=== PATIENT | female | born 1950 | race Caucasian/White ===

== ENCOUNTER 2017-01-20 07:14 | Emergency (ER) | payer MEDICARE, OTHER ==
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
[2017-01-20] MEDS: oxyCODONE/ACETAMINOPHEN 5/325 TABLET PO ONE (08:03)
[2017-01-20] MEDS: oxyCODONE HCL 5 MG TABLET PO SCH (08:04)
[2017-01-20] MEDS: traMADol HCL 50 MG TABLET PO ONE (08:06)
[2017-01-20] MEDS: LORazepam 1 MG TABLET PO ONE (08:30)
[2017-01-20 09:09] VITALS: BP 167/56
--- NOTE | 2017-01-20 09:17 | Diagnostic Imaging Report ---
[facility] [address] [facility].[address] [id number] Report Submission Date: Jan 20, 2017 8:02:30 AM FRUIT RAISER Patient Study Name: CONOR BARRIOS Date: Jan 20, 2017 7:49:39 AM FRUIT RAISER Modality Type: CR Gender: F Description: PELVIS : 50 Institution: [facility] Physician: AMY GARCIA Left hip 2 views Clinical history: History of fall Single AP view of the left hip demonstrate an old hip abnormalities with absent head and neck of the left femur. Screw defects are seen in the proximal shaft of left femur. No acute process. Impression: Chronic the change of the left hip with removal of the head of the neck of the left femur without evidence of acute fractures Electronically signed on Jan 20, 2017 8:02:30 AM FRUIT RAISER by: Len SMALLS
--- NOTE | 2017-01-20 09:18 | Diagnostic Imaging Report ---
[facility] [address] [facility].[address] [address] Report Submission Date: Jan 20, 2017 8:00:45 AM NARROW GAUGE ENGINEER Patient Study Name: CONOR BARRIOS Date: Jan 20, 2017 7:40:17 AM NARROW GAUGE ENGINEER Modality Type: CR Gender: F Description: LOWER EXTREMITY : 50 Institution: [facility] Physician: AMY GARCIA Left knee 2 views Clinical history: Trauma Severe osteopenia. Joint effusion with nondisplaced transverse fracture of the proximal left tibia best seen on the lateral projection . Impression: Nondisplaced fracture of the proximal left tibial with joint effusion . Electronically signed on Jan 20, 2017 8:00:45 AM NARROW GAUGE ENGINEER by: Len SMALLS
== END 2017-01-20 08:55 | disposition home or self-care (01) ==
LOC: ED 07:14
DX: S82.192A Other fracture of upper end of left tibia, initial encounter for closed fracture (principal); W19.XXXA Unspecified fall, initial encounter; Y93.9 Activity, unspecified; Y99.9 Unspecified external cause status; F41.9 Anxiety disorder, unspecified
CPT/HCPCS: 73501; 73560; 99283